=== PATIENT | male | born 1965 | race Caucasian/White ===

== ENCOUNTER 2017-07-05 10:36 | Emergency (ER) | payer OTHER ==
--- NOTE | 2017-07-05 10:49 | PDOC ---
History of Present Illness - General Chief Complaint: Pain, Acute Stated Complaint: LEFT HEEL PAIN Time Seen by Provider: 07/05/17 10:41 - History of Present Illness Initial Comments: 07/05/17 10:45 Chief complaint: Pain left heel History of present illness: [place], sustaining a laceration of the plantar aspect of the left heel. He went to urgent care, the wound was cleaned and bandaged, and he was prescribed antibiotics, which he is finishing now. The prescription was for Bactrim DS. He did not have an x-ray. He has persistent pain, especially with weightbearing, and is concerned about a possible foreign body Review of systems: Denies distal numbness tingling pain or weakness of the forefoot or toes. Denies swelling, drainage, or limited ambulation. Denies any other injuries including injuries to the more proximal extremity Past medical history: Healthy male, denies any medical or surgical problems or home medications. Specifically denies diabetes Social/family history reviewed and noncontributory Physical exam: Alert and oriented well-developed well-nourished no acute distress cooperative Afebrile, vital signs normal Left foot: There is a healing laceration of the plantar aspect of the left heel. It is closed. There is no sign of infection. Specifically, there is no swelling, induration, erythema, warmth, or drainage. There are several fissures in this area that appear to be tender to palpation. These however show no sign of infection as well. There appears to be minimal point tenderness over the laceration itself. No other injury to the foot as noted Impression: The pain appears to be result of fissuring of the heel rather than a laceration itself. No foreign body or nodularity is palpable. No sign of infection is present. Plan: Soft tissue x-ray to exclude occult foreign body. Management depending on results. Past History - Past Medical History Allergies/Adverse Reactions: Allergies Allergy/AdvReac Type Severity Reaction Status Date / Time No Known Allergies Allergy Unverified 07/05/17 10:48 Home Medications: Ambulatory Orders NK [No Known Home Medication] 07/05/17 ED Treatment Course - RADIOLOGY Radiology Studies Ordered: Category Date Time Status FOOT-LEFT [RAD] Stat Radiology 07/05/17 10:41 Ordered Medical Decision Making - Medical Decision Making 07/05/17 11:05 X-ray is negative for foreign body Strong moisturizer with occlusion was recommended for the heel. Dermatological follow-up as needed. Patient fully ambulatory and in no significant discomfort upon discharge to follow-up as directed *DC/Admit/Observation/Transfer Diagnosis at time of Disposition: Fissure in skin - Discharge Dispostion Disposition: HOME Condition at time of disposition: Stable Admit: No - Patient Instructions Additional Instructions: There is no foreign body visualized new x-ray. Your symptoms may at least partly be due to scarring recurs with healing as well as the cracked skin and fissuring of your heel Obtain a good moisturizer and use frequently on the heels to allow healing of the cracking and fissuring. This moisturizer should continue urea. See bit grinder if no improvement. Be sure to use cushioned footwear. A padded heel cough a be helpful.
[2017-07-05 10:50] VITALS: BP 122/76; PULSE 56; TEMP 98.2; BMI 24.3
== END 2017-07-05 11:15 | disposition home or self-care (01) ==
LOC: FER 10:36
DX: R23.4 Changes in skin texture (principal)
CPT/HCPCS: 73630-TC-LT; 99283-25